=== PATIENT | female | born 1995 | race African-American/Black ===

== ENCOUNTER 2022-12-31 20:41 | Emergency (ER) | payer SELFPAY ==
[~2022-12-31] VITALS: Ht 172.7 cm; Wt 60.5 kg
[2022-12-31 20:45] VITALS: BP 122/82; PULSE 79; TEMP 98.4
[2022-12-31 21:42] LABS: COLLECTION METHOD CLEAN CATCH
[2022-12-31 21:58] LABS: PH 7.5 (5.0-8.5); URINE APPEARANCE Clear (CLEAR/HAZY); URINE BLOOD Negative (NEGATIVE); URINE COLOR Yellow (YELLOW); URINE GLUCOSE Negative (NEGATIVE); URINE KETONE Negative (NEGATIVE); URINE NITRATE Negative (NEGATIVE); URINE PROTEIN(semi-quant) Negative (NEGATIVE); URINE RBC None Seen /hpf (0-2); URINE UROBILINOGEN 0.2 E.U/dL (0.2-1.0)
[2022-12-31 21:59] LABS: AMORPHOUS CRYSTAL Present (NOT PRESENT); SQUAMOUS EPITHELIAL 0-2 /hpf (0-10); URINE BACTERIA None Seen /hpf (NONE SEEN)
== END 2022-12-31 22:10 | disposition home or self-care (01) ==
LOC: COL.ER 20:41
PROVIDERS: Emergency Medicine
DX: O26.891 Other specified pregnancy related conditions, first trimester (principal); R10.30 Lower abdominal pain, unspecified; Z3A.00 Weeks of gestation of pregnancy not specified